=== PATIENT | female | born 1995 | race African-American/Black ===

== ENCOUNTER 2017-10-20 21:10 | Emergency (ER) | payer OTHER ==
[~2017-10-20] VITALS: Ht 154.9 cm; Wt 73.9 kg
[2017-10-20] MEDS ORDERED: CLONIDINE HCL 0.1 MG TAB PO ONE (21:30)
== END 2017-10-20 22:11 | disposition home or self-care (01) ==
LOC: ER 21:10
DX: I10 Essential (primary) hypertension (principal)
CPT/HCPCS: 99282